=== PATIENT | female | born 1955 | race Caucasian/White ===

== ENCOUNTER 2017-01-26 01:03 | Emergency (ER) | payer OTHER ==
[~2017-01-26] VITALS: Ht 160 cm; Wt 64.7 kg
[~2017-01-26 01:03] MED LIST: LEVO100T4 PO; LORTA5 PO; RIVA10 PO; Z.0.COMMODE-3:1; Z.0.WALKERFRONT
[2017-01-26 01:09] VITALS: BP 125/83; PULSE 86; RESP 16; TEMP 97.6; O2SAT 95
[2017-01-26] MEDS ORDERED: LEVO112T2 PO (01:28)
[2017-01-26 01:30] VITALS: RESP 16; O2SAT 95
[2017-01-26] MEDS ORDERED: SODIUM CHLOR 0.9% 1000 ML INJ 1,000 ML IV ONE (01:59)
[2017-01-26] MEDS ORDERED: ONDANSETRON HCL 4 MG/2 ML VIAL IVP ONE (02:00)
[2017-01-26] MEDS ORDERED: SODIUM CHLORIDE 0.9% FLUSH 10 ML FLUSH IVF PRN (02:00)
--- NOTE | 2017-01-26 02:04 | PD ---
HPI Chief Complaint: GI Complaint Time Seen by Provider: 01:59 Travel History International Travel<30 days: No Contact w/Intl Traveler<30days: No Traveled to known affect area: No History of Present Illness HPI 61-year-old female presents to the emergency department by private transportation for complaint of nausea vomiting diarrhea and intermittent abdominal pain. Patient states symptoms began sometime after 7 PM this evening. Daughter is being seen in the emergency department for same complaints and while visiting with her daughter started noticing that she was having similar symptoms. Patient and daughter ate the same foods Monday through Monday patient has had no fever or chills. No hematemesis no coffee- ground emesis no melena hematochezia. Patient states she's had bilious emesis was very watery diarrhea. Patient continued to make good urine output. Patient has been able to tolerate sips of water. Patient denies chest pain shortness of breath as well as denies fever or chills. Patient presently has no abdominal pain. Patient has history of dyslipidemia and hypothyroidism. Patient denies personal history of CAD hypertension diabetes or tobaccoism. Patient rates pain 0/10 intensity. Patient denies any previous abdominal surgery. Patient reports no known food borne illness or water ingestion or foreign travel. PFSH Past Medical History Narrative Medical Arthritis asthma dyslipidemia hypothyroidism; knee replacement; tobacco use; nursing notes reviewed Arthritis: Yes Heart Rhythm Problems: No Cancer: No Cardiovascular Problems: Yes High Cholesterol: Yes Chest Pain: Yes Congestive Heart Failure: No Diabetes: No Diminished Hearing: No Endocrine: Yes GERD: Yes Genitourinary: Yes Hepatitis: No Hiatal Hernia: No Immune Disorder: No Kidney Stones: No Musculoskeletal: Yes Neurologic: No Psychiatric: No Reproductive: No Respiratory: No Renal Failure: No Thyroid Disease: Yes Ulcer: No Tetanus Vaccination: Unknown Influenza Vaccination: No ?: Not LMP: POST MENAPAUSAL : 3 Para: 3 Past Surgical History AICD: No Joint Replacement: Yes (RIGHT KNEE) Pacemaker: No Social History Alcohol Use: Yes (OCC) Tobacco Use: Yes (OCC CIG. MAYBE 1-2 CIGS MONTH) Substance Use: No Allergies-Medications (Allergen,Severity, Reaction): Coded Allergies: No Known Allergies (Verified , 02/09/07) Reported Meds & Prescriptions Reported Meds & Active Scripts Active Reported Levothyroxine (Levothyroxine Sodium) 112 Mcg Tab 112 Mcg PO DAILY Review of Systems Except as stated in HPI: all other systems reviewed are Neg General / Constitutional: No: Fever, Chills HENT: No: Congestion Cardiovascular: No: Chest Pain or Discomfort Respiratory: No: Shortness of Breath Gastrointestinal: Positive: Nausea, Vomiting, Diarrhea, Abdominal Pain ( intermittent crampy none at this time) Genitourinary: No: Dysuria, Decreased Urinary Output Musculoskeletal: No: Myalgias, Arthralgias Skin: No Rash Neurologic: No: Weakness Psychiatric: No: Anxiety Hematologic/Lymphatic: No: Easy Bruising Physical Exam Narrative GENERAL: Well-developed well-nourished female in no acute distress no respiratory distress SKIN: Warm and dry. HEAD: Normocephalic. EYES: No scleral icterus. No injection or drainage. NECK: Supple, trachea midline. No JVD or lymphadenopathy. CARDIOVASCULAR: Regular rate and rhythm without murmurs, gallops, or rubs. RESPIRATORY: Breath sounds equal bilaterally. No accessory muscle use. GASTROINTESTINAL: Abdomen soft, non-tender, nondistended. MUSCULOSKELETAL: No cyanosis, or edema. BACK: Nontender without obvious deformity. No CVA tenderness. Data Data Last Documented VS Vital Signs Date Time Temp Pulse Resp B/P Pulse Ox O2 Delivery O2 Flow Rate FiO2 01/26/17 01:36 16 01/26/17 01:30 95 Room Air 01/26/17 01:09 97.6 86 125/83 Orders Complete Blood Count With Diff (01/26/17 01:59) Basic Metabolic Panel (Bmp) (01/26/17 01:59) Urinalysis - C+S If Indicated (01/26/17 01:59) Iv Access Insert/Monitor (01/26/17 01:59) Ecg Monitoring (01/26/17 01:59) Oximetry (01/26/17 01:59) Ondansetron Inj (Zofran Inj) (01/26/17 02:00) Sodium Chlor 0.9% 1000 Ml Inj (Ns 1000 M (01/26/17 01:59) Sodium Chloride 0.9% Flush (Ns Flush) (01/26/17 02:00) Labs Laboratory Tests Test 01/26/17 01/26/17 01:45 03:10 White Blood Count 11.0 TH/MM3 Red Blood Count 5.62 MIL/MM3 Hemoglobin 15.4 GM/DL Hematocrit 47.1 % Mean Corpuscular Volume 83.8 FL Mean Corpuscular Hemoglobin 27.3 PG Mean Corpuscular Hemoglobin 32.6 % Concent Red Cell Distribution Width 12.0 % Platelet Count 244 TH/MM3 Mean Platelet Volume 9.0 FL Neutrophils (%) (Auto) 85.9 % Lymphocytes (%) (Auto) 9.4 % Monocytes (%) (Auto) 3.5 % Eosinophils (%) (Auto) 1.1 % Basophils (%) (Auto) 0.1 % Neutrophils # (Auto) 9.5 TH/MM3 Lymphocytes # (Auto) 1.0 TH/MM3 Monocytes # (Auto) 0.4 TH/MM3 Eosinophils # (Auto) 0.1 TH/MM3 Basophils # (Auto) 0.0 TH/MM3 CBC Comment DIFF FINAL Differential Comment Sodium Level 140 MEQ/L Potassium Level 4.0 MEQ/L Chloride Level 104 MEQ/L Carbon Dioxide Level 26.0 MEQ/L Anion Gap 10 MEQ/L Blood Urea Nitrogen 18 MG/DL Creatinine 1.10 MG/DL Estimat Glomerular Filtration 51 ML/MIN Rate Random Glucose 132 MG/DL Calcium Level 9.4 MG/DL Urine Color YELLOW Urine Turbidity CLEAR Urine pH 6.0 Urine Specific Bronson 1.016 Urine Protein NEG mg/dL Urine Glucose (UA) NEG mg/dL Urine Ketones NEG mg/dL Urine Occult Blood SMALL Urine Nitrite NEG Urine Bilirubin NEG Urine Leukocyte Esterase NEG Urine RBC 4-9 /hpf Urine WBC 0-2 /hpf Urine Squamous Epithelial 0-5 /hpf Cells Urine Bacteria NONE /hpf Microscopic Urinalysis Comment CULT NOT INDICATED MDM Medical Decision Making Medical Screen Exam Complete: Yes Emergency Medical Condition: Yes Medical Record Reviewed: Yes Interpretation(s) CBC & BMP Diagram 01/26/17 01:45 ua: wnl Vital Signs Date Time Temp Pulse Resp B/P Pulse Ox O2 Delivery O2 Flow Rate FiO2 01/26/17 01:36 16 01/26/17 01:30 16 95 Room Air 01/26/17 01:09 97.6 86 16 125/83 95 Differential Diagnosis Gastroenteritis, food borne illness, electronic disturbance, dehydration Narrative Course IV access obtained specimens collected sent for resulting Zofran 4 mg IV administered along with 1 L normal saline Patient clinically improved after fluid hydration and anti-medic Lab values found to be grossly within normal range Patient given follow oral hydration; patient otherwise stable for outpatient management and follow-up with primary care provider Diagnosis Primary Impression: Gastroenteritis Referrals: Primary Care Physician call for appointment Patient Instructions: General Instructions Additional Instructions: Increase fluid hydration Follow clear liquid diet for next 12-24 hours advance as tolerated to bland/ Sere diet then regular diet Monitor temperature take acetaminophen/Tylenol as needed for fever 100.4F or greater Follow-up with primary care provider Return to the emergency department for any concerns or change in condition Takes Zofran as prescribed as needed for nausea and/or vomiting Med/Other Pt SpecificInfo: Prescription(s) given Scripts Ondansetron Odt (Zofran Odt)4 Mg Tab4 Mg SL Q6HR PRN (Nausea/Vomiting) #10 TAB Ref 0 Prov:Mica Holcomb MD 01/26/17 Disposition: 01 DISCHARGE HOME Condition: Stable Mica Holcomb MD Jan 26, 2017 02:04
[2017-01-26 02:25] LABS: AUTOMATED NEUTROPHIL # 9.5 TH/MM3 (1.8-7.7); BASOPHIL % 0.1 % (0.0-2.0); EOSINOPHIL # 0.1 TH/MM3 (0-0.4); EOSINOPHIL % 1.1 % (0.0-4.0); HEMATOCRIT 47.1 % (35.0-46.0); LYMPH % 9.4 % (9.0-44.0); MEAN CELL VOLUME 83.8 FL (80.0-100.0); MEAN CORPUSCULAR HEMOGLOBIN 27.3 PG (27.0-34.0); MEAN CORPUSCULAR HGB CONC 32.6 % (32.0-36.0); MONO % 3.5 % (0.0-8.0); NEUT % 85.9 % (16.0-70.0); PLATELET COUNT 244 TH/MM3 (150-450); RED BLOOD COUNT 5.62 MIL/MM3 (4.00-5.30)
[2017-01-26 02:28] LABS: HEMO FLAGS DIFF FINAL
[2017-01-26 03:21] LABS: BLOOD, URINE SMALL (NEG); GLUCOSE,URINE NEG (NEG); KETONE, URINE NEG (NEG); NITRITE,URINE NEG (NEG)
[2017-01-26 03:29] LABS: COMMENT (UR) CULT NOT INDICATED; CULTURE IF INDICATED CULT NOT INDICATED; SQUAMOUS EPITHELIAL CELL URINE 0-5 /hpf (0-5); URINE COLOR YELLOW (YELLW/STRAW); WBC, URINE 0-2 /hpf (0-5)
[2017-01-26] MEDS ORDERED: ZOFR4TAB3 SL (03:34)
[2017-01-26 03:37] VITALS: BP 111/74; PULSE 82; RESP 18; O2SAT 100
== END 2017-01-26 03:50 | disposition home or self-care (01) ==
LOC: PHED 01:03
DX: K52.9 Noninfective gastroenteritis and colitis, unspecified (principal); R10.9 Unspecified abdominal pain; J45.909 Unspecified asthma, uncomplicated
CPT/HCPCS: 80048; 81001; 85025; 96361; 96374; 99284; J2405; J7030

== ENCOUNTER 2018-03-14 22:05 | Emergency (ER) | payer OTHER ==
[~2018-03-14] VITALS: Ht 162.6 cm; Wt 64.0 kg
[~2018-03-14 22:05] MED LIST changes: -LEVO100T4 PO; +LEVO112T2 PO; -LORTA5 PO; -RIVA10 PO; -Z.0.COMMODE-3:1; -Z.0.WALKERFRONT; +ZOFR4TAB3 SL
[2018-03-14 22:14] VITALS: BP 139/87; PULSE 108; RESP 20; TEMP 99.1; O2SAT 95
[2018-03-14] MEDS ORDERED: HYDR-3516 PO (22:30)
[2018-03-14] MEDS ORDERED: CLIN75SO PO (22:45)
[2018-03-14] MEDS ORDERED: CLINDAMYCIN 900 MG/NS PREMIX 50 ML IV ONE (22:45)
[2018-03-14] MEDS ORDERED: methylPREDNISolone SOD SUCC 125 MG/2 ML VIAL IV PUSH ONE (22:45)
[2018-03-14] MEDS ORDERED: DEXA0.5S PO (22:45)
--- NOTE | 2018-03-14 23:02 | PD ---
HPI Chief Complaint: Facial Pain or Swelling Time Seen by Provider: 22:41 Travel History International Travel<30 days: No Contact w/Intl Traveler<30days: No Traveled to known affect area: No History of Present Illness HPI The patient is a 62-year-old female that had sublingual glands removed today by Dr. Zamora in [place]. The patient has the expected swelling around the sublingual area and swelling of the tongue. She does not have an airway obstruction and is able to verbalize. She came in because of the possibility of airway obstruction and she was advised by Dr. Zamora to get an evaluation of the swelling in the emergency department. The pain is a dull throbbing pain. She was given hydrocodone tablets for this and she is able to crush those up and take these as prescribed. She prefers that any oral medications given by us would be liquids. She denies any fever. PFSH Past Medical History Arthritis: Yes Heart Rhythm Problems: No Cancer: No Cardiovascular Problems: Yes High Cholesterol: Yes Chest Pain: Yes Congestive Heart Failure: No Diabetes: No Diminished Hearing: No Endocrine: Yes Gastrointestinal Disorders: Yes GERD: Yes Genitourinary: Yes Hepatitis: No Hiatal Hernia: No Immune Disorder: No Kidney Stones: No Musculoskeletal: Yes Neurologic: No Psychiatric: No Reproductive: No Respiratory: No Renal Failure: No Thyroid Disease: Yes Ulcer: No Tetanus Vaccination: Unknown Influenza Vaccination: No ?: Not Menopausal: Yes : 3 Para: 3 Past Surgical History AICD: No Joint Replacement: Yes (RIGHT KNEE) Oral Surgery: Yes (03/14/18) Pacemaker: No Social History Alcohol Use: Yes (OCC) Tobacco Use: Yes (OCC CIG. MAYBE 1-2 CIGS MONTH) Substance Use: No Allergies-Medications (Allergen,Severity, Reaction): Coded Allergies: No Known Allergies (Verified , 02/09/07) Reported Meds & Prescriptions Reported Meds & Active Scripts Active Dexamethasone Liq (Dexamethasone) 0.5 Mg/5 Ml Soln 4 Mg PO DAILY 5 Days Clindamycin Liq 75 Mg/5 Ml Soln 300 Mg PO Q6H 10 Days Reported Hydrocodone-Acetaminophen 5-325 mg Tab 1 Tab PO Q4H PRN Levothyroxine (Levothyroxine Sodium) 112 Mcg Tab 112 Mcg PO DAILY Review of Systems Except as stated in HPI: all other systems reviewed are Neg Physical Exam Narrative GENERAL: Well-nourished, well-developed patient in no respiratory distress but moderate distress with her mouth pain. Her vital signs show a pulse of 108 but are otherwise normal. SKIN: Focused skin assessment warm/dry. HEAD: Normocephalic. EYES: No scleral icterus. No injection or drainage. NECK: Supple, trachea midline. No JVD or lymphadenopathy. CARDIOVASCULAR: Regular rate and rhythm without murmurs, gallops, or rubs. RESPIRATORY: Breath sounds equal bilaterally. No accessory muscle use. GASTROINTESTINAL: Abdomen soft, non-tender, nondistended. MUSCULOSKELETAL: No cyanosis, or edema. BACK: Nontender without obvious deformity. No CVA tenderness. ENT: There is the expected postsurgical swelling of the sublingual glands and slight swelling of the tongue with the tongue being pushed up. This appears to be expected swelling and no abscess formation is noted. No cellulitis is noted. Data Data Last Documented VS Vital Signs Date Time Temp Pulse Resp B/P (MAP) Pulse Ox O2 Delivery O2 Flow Rate FiO2 03/14/18 22:15 20 03/14/18 22:14 99.1 108 139/87 (104) 95 Orders Orders Clindamycin 900 Mg/Ns Premix (Cleocin 90 (03/14/18 22:45) Methylprednisolone So Succ Inj (Solumedr (03/14/18 22:45) MDM Medical Decision Making Medical Screen Exam Complete: Yes Emergency Medical Condition: Yes Medical Record Reviewed: Yes Differential Diagnosis Cellulitis of tongue, allergic reaction, postsurgical swelling, sublingual abscess Narrative Course I discussed the patient with Dr. Zamora at his phone number . He and I both agreed that antibiotics were warranted and he suggested clindamycin. I will also give her some prednisone, Dr. Zamora also concurred. The medications will be liquids. Dr. Zamora will see the patient tomorrow in his office. Impression postsurgical swelling of tongue Diagnosis Primary Impression: Postsurgical swelling of tongue Additional Instructions: The clindamycin is taken 20 cc every 6 hours for 10 days. The dexamethasone is 4 mg daily (40 cc) daily for 5 days. Methylprednisolone 125 mg and 900 mg of clindamycin will be given IV here. The patient will follow up with Dr. Zamora tomorrow. He will likely need to sleep upright in a chair tonight. The patient will follow up with Dr. Zamora tomorrow. Med/Other Pt SpecificInfo: Prescription(s) given Scripts Dexamethasone Liq (Dexamethasone Liq) 0.5 Mg/5 Ml Soln 4 MG PO DAILY for 5 Days, #200 ML 0 Refills Prov: Jose Levi MD 03/14/18 Clindamycin Liq (Clindamycin Liq) 75 Mg/5 Ml Soln 300 MG PO Q6H for Infection for 10 Days, #800 ML 0 Refills Prov: Jose Levi MD 03/14/18 Disposition: 01 DISCHARGE HOME Condition: Stable Jose Levi MD Mar 14, 2018 23:02
[2018-03-14 23:05] VITALS: BP 138/87; PULSE 97; RESP 20; O2SAT 95
== END 2018-03-14 23:34 | disposition home or self-care (01) ==
LOC: PHED 22:05
DX: R22.0 Localized swelling, mass and lump, head (principal); M19.90 Unspecified osteoarthritis, unspecified site; E78.00 Pure hypercholesterolemia, unspecified; K21.9 Gastro-esophageal reflux disease without esophagitis; E07.9 Disorder of thyroid, unspecified; F17.210 Nicotine dependence, cigarettes, uncomplicated; Z79.899 Other long term (current) drug therapy
CPT/HCPCS: 96365; 96375; 99284; J2930